=== PATIENT | female | born 1965 | race Caucasian/White ===

== ENCOUNTER 2016-09-14 13:11 | Emergency (ER) | payer OTHER ==
[2016-09-14] MEDS: KETOROLAC TROMETHAMINE 60 MG/2 ML VIAL IM ONE (14:04)
[2016-09-14] MEDS: METOCLOPRAMIDE HCL 5 MG TABLET PO ONE (14:04)
[2016-09-14] MEDS: HYOSCYAMINE SULFATE 0.125 MG TAB.SUBL SL SCH (14:04)
[2016-09-14 14:07] LABS: APPEARANCE,URINE Clear (CLEAR); COLOR,URINE Yellow (YELLOW); OCCULT BLOOD,URINE 1+ (NEGATIVE); UROBILINOGEN URINE 0.2 Eu (0.2-1.0)
[2016-09-14 14:34] LABS: BASOPHILS % 0.6 (0.0-1.5); EOSINOPHILS % 1.6 % (0.0-6.8); MEAN CORPUSCULAR HEMOGLOBIN 33.5 pg (28.0-34.0); MEAN CORPUSCULAR VOLUME 97.6 fl (80.0-100.0); MONOCYTES % 5.5 % (0.0-11.0); NEUTROPHILS # 5.2 # k/uL (1.4-7.7)
--- NOTE | 2016-09-14 14:52 | Diagnostic Imaging Report ---
[facility] [address] [facility] [address] [place], [place]. [address] Report Submission Date: September 14, 2016 2:29:24 PM CDT Patient Study Name: ISHA BALL Date: September 14, 2016 2:03:25 PM CDT Modality Type: CT\SR Gender: F Description: CT ABD & PELVIS W/O CO : 63 Institution: [facility] Physician ALFIE PEREZ - ER CT of the abdomen and pelvis without contrast CLINICAL HISTORY: Mid right upper quadrant pain for about a week that is worsening with nausea. TECHNIQUE: CT of the abdomen and pelvis is performed without oral or intravenous administration of contrast FINDINGS: Mosaic attenuation is evident in the lung bases consistent with areas of air- trapping. The liver and spleen demonstrate normal attenuation without focal defect. Gallbladder is surgically absent. There is no pancreatic or adrenal abnormality. The kidneys are of normal size, shape and position. 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 Kidneys are of normal size, shape and position. There is a punctate calcification lower pole right kidney. There is no hydronephrosis or perinephric stranding. Vascular calcification is present in the abdominal aorta without evidence of aneurysm. Bladder is unremarkable. There is no free fluid in the pelvis or abdomen. Uterus is surgically absent. Degenerative changes and scoliosis are present in the lumbar vertebrae. IMPRESSION: Right intrarenal calculus. Vascular calcification. Lumbar spondylosis and scoliosis. Negative appendix. Mosaic attenuation lung bases consistent with areas of air-trapping. Electronically signed on September 14, 2016 2:29:24 PM CDT by: Cristobal VALLECILLO
[2016-09-14 14:55] LABS: eGFR (African) > 60; eGFR (Non-African) > 60
[2016-09-14 16:53] VITALS: BP 139/75
--- NOTE | 2016-09-14 16:57 | ED Physician Documentation ---
Abdominal Pain - HISTORIAN Historian: patient - HPI Stated Complaint: ABD PAIN Chief Complaint: Abdominal Pain Additonal Information: pain in lower abdomen for last 7 years Onset: other (7 years) Duration: other (intermittant) Timing: still present Context: denies: out of country travel, bad food, recent trauma Severity: moderate Quality: stabbing Associated Symptoms: none Exacerbated by: movements Relieved by: remaining still - ROS CONST: no problems GI/: denies: constipation, black stools, bloody urine, bloody stools, dark urine, problems urinating CVS/RESP: none EYES/ENT: none MS/SKIN/LYMPH: none NEURO/PSYCH: none - SOCIAL HX Smoking History: cigarettes Alcohol Use: occasionally Drug Use: none - FAMILY HX Family History: no significant history - PAST HX Past History: other (ventral abdominal hernia) Ischemic Bowel Risk Factors: none Other History: other (cholelithiasis) Surgeries/Procedures: cholecystectomy, hysterectomy, other (ventral hernia repair) Home Medications: Ambulatory Orders Medication Instructions Recorded NK [NK] 09/14/16 Allergies/Adverse Reactions: Allergies Allergy/AdvReac Type Severity Reaction Status Date / Time Penicillins Allergy Verified 09/14/16 13:25 - VITAL SIGNS Vital Signs: Vital Signs Temp Pulse Resp BP Pulse Ox 98.3 F 80 19 139/75 96 09/14/16 15:30 09/14/16 15:30 09/14/16 15:30 09/14/16 15:30 09/14/16 13:11 - REVIEWED ASSESSMENTS Nursing Assessment Reviewed: Yes Vitals Reviewed: Yes Progress - Results/Orders Results/Orders: cbc, cmp, ua, amylase, ct abdomen/pelvis ordered - Progress Progress: pt. given hyoscyamine, ketorolac, reglan p.o. in er with significant improvement in pain Critical Care Note - Critical Care Note Total Time (mins): 0 ED Results Lab/Radiology - Lab Results Lab Results: Lab Results 09/14/16 09/14/16 09/14/16 14:30 14:30 14:05 WBC 8.20 K/ul K/ul (4.00-12.00) RBC 4.09 M/ul M/ul (3.90-5.20) Hgb 13.7 g/dL g/dL (12.0-16.0) Hct 39.9 % % (34.5-46.5) MCV 97.6 fl fl (80.0-100.0) MCH 33.5 pg pg (28.0-34.0) MCHC 34.3 g/dL g/dL (30.0-36.0) RDW 13.0 % % (11.3-14.3) Plt Count 167 K/mm3 K/mm3 (130-400) Neut % (Auto) 63.1 % % (39.0-79.0) Lymph % (Auto) 27.8 % % (16.0-50.0) [place] % (Auto) 5.5 % % (0.0-11.0) Eos % (Auto) 1.6 % % (0.0-6.8) Baso % (Auto) 0.6 (0.0-1.5) Neut # 5.2 # k/uL # k/uL (1.4-7.7) Lymph # 2.3 # k/uL # k/uL (0.6-4.0) Mora # 0.4 # k/uL # k/uL (0.0-0.9) Eos # 0.1 # k/uL # k/uL (0.0-0.6) Baso # 0.0 # k/uL # k/uL (0.0-0.5) Reactive Lymphs % 1.4 % % (0.0-5.0) Reactive Lymphs # 0.1 # k/uL # k/uL (0.0-0.8) Sodium 143 mmol/L mmol/L (136-145) Potassium 3.8 mmol/L mmol/L (3.5-5.0) Chloride 109 mmol/L mmol/L (98-110) Carbon Dioxide 31 mmol/L mmol/L (20-32) BUN 9 mg/dL L mg/dL (10-26) Creatinine 0.6 mg/dL mg/dL (0.4-1.5) Estimated Creat Clear 212 Est GFR ( Amer) > 60 (60 - ) Est GFR (Non-Af Amer) > 60 (60 - ) Glucose 96 mg/dL mg/dL (70-99) Calcium 10.4 mg/dL mg/dL (8.5-10.5) Total Bilirubin 0.4 mg/dL mg/dL (0.2-1.2) AST 16 U/L U/L (0-41) ALT 18 U/L U/L (0-45) Alkaline Phosphatase 85 U/L U/L (46-116) Total Protein 8.2 g/dL g/dL (6.0-8.5) Albumin 4.8 g/dL g/dL (3.0-5.5) Amylase 66 U/L U/L (20-104) Urine Color Yellow (YELLOW) Urine Appearance Clear (CLEAR) Urine pH 6.0 (5.0 - 8.0) Ur Specific [place] <=1.005 L (1.010-1.030) Urine Protein Negative mg/dL mg/dL (NEGATIVE) Urine Ketones Negative mg/dL mg/dL (NEGATIVE) Urine Occult Blood 1+ H (NEGATIVE) Urine Nitrite Negative (NEGATIVE) Urine Bilirubin Negative (NEGATIVE) Urine Urobilinogen 0.2 Eu Eu (0.2-1.0) Ur Leukocyte Esterase Negative (NEGATIVE) Urine RBC 0-2 (0-2 HPF) Urine WBC 0-2 (0-5 HPF) Ur Squamous Epith Cells Few (NEG-FEW) Urine Bacteria Few H (NEGATIVE) Urine Glucose Negative mg/dL mg/dL (NEGATIVE) - Radiology Radiology Impressions: ct abdomen/pelvis neg - Orders Orders: ED Orders Category Date Time Status CT ABD & PELVIS W/O CON Stat Exams 09/14/16 Completed AMYLASE Routine Lab 09/14/16 14:30 Completed CBC/PLATELET/DIFF Routine Lab 09/14/16 14:30 Completed CMP Routine Lab 09/14/16 14:30 Completed URINALYSIS Routine Lab 09/14/16 14:05 Completed Hyoscyamine Sulfate [Oscimin Sl] Med 09/14/16 14:00 Discontinued 0.25 mg SL 1T Ketorolac Tromethamine [Toradol] Med 09/14/16 13:46 Discontinued 60 mg IM NOW ONE Metoclopramide HCl [Reglan] Med 09/14/16 13:46 Discontinued 10 mg PO NOW ONE Abdominal Pain Physical Exam - Physical Exam General Appearance: moderate distress EENT: eye inspection normal, ENT inspection normal, pharynx normal, no signs of dehydration, MARLON, no nystagmus, TM's nml NECK: normal inspection, thyroid normal, supple RESPIRATORY: no resp distress, chest non-tender, breath sounds normal CVS: reg rate & rhythm, heart sounds normal, equal pulses, no murmur, no gallop , PMI nml, no JVD ABDOMEN: soft, no organomegaly, normal bowel sounds, no abdominal bruit, no distension, tenderness (generalized) BACK: normal inspection, no CVA tenderness SKIN: warm/dry, normal color EXTREMITIES: non-tender, normal range of motion, no evidence of injury, no edema NEURO: oriented X3, CN's nml as tested, motor nml, sensation nml, mood/affect nml Vital Signs: Vital Signs Temp Pulse Resp BP Pulse Ox 98.3 F 80 19 139/75 96 09/14/16 15:30 09/14/16 15:30 09/14/16 15:30 09/14/16 15:30 09/14/16 13:11 Discharge Clincal Impression: Abdominal adhesions Referrals: Primary Doctor,No [Primary Care Provider] - 2 Days Home Medications: Ambulatory Orders NK [NK] 09/14/16 Comments: Pt. discharged with scripts for hyoscyamine and reglan Condition: Stable Disposition: 01 HOME, SELF-CARE Decision to Admit: NO Decision Time: 15:20
== END 2016-09-14 15:30 | disposition home or self-care (01) ==
LOC: ED 13:11
DX: K66.0 Peritoneal adhesions (postprocedural) (postinfection) (principal)
CPT/HCPCS: 74176; 80053; 81002; 82150; 85025; A9270; J1885; 96372; 99283